=== PATIENT | male | born 1980 | race Caucasian/White ===

== ENCOUNTER 2016-08-24 14:57 | Emergency (ER) | payer OTHER ==
[~2016-08-24 14:57] MED LIST: NOHOMEMEDS
[2016-08-25] MEDS ORDERED: ZOFRAN4 MG PO (21:17)
[2016-08-25] MEDS ORDERED: LIBRIUM25 MG PO (21:17)
== END 2016-08-24 15:48 | disposition left against medical advice (07) ==
LOC: EME 14:57
DX: F10.10 Alcohol abuse, uncomplicated (principal); Z53.21 Procedure and treatment not carried out due to patient leaving prior to being seen by health care provider
CPT/HCPCS: 93005; 99281; 99284

== ENCOUNTER 2016-08-25 00:59 | Emergency (ER) | payer OTHER ==
[~2016-08-25] VITALS: Ht 182.9 cm; Wt 73.5 kg
[2016-08-25 01:42] LABS: HEMATOCRIT 51.2 % (38.0-50.0); MCH 31.9 PG (29.0-34.0); MCHC 34.4 G/DL (30.0-36.0); MCV 92.8 FL (86-99); MEAN PLAT.VOLUME 10.2 uM^3 (9.0-12.4); PLATELET COUNT 137 K/uL (156-360); RBC DIS.WIDTH-CV 12.1 % (11.8-14.6); RBC DIS.WIDTH-SD 41.4 % (39-53); RED BLOOD COUNT 5.52 M/uL (4.00-5.50); WHITE BLOOD COUNT 5.2 K/uL (4.1-10.2)
[2016-08-25 01:48] LABS: CHLORIDE 98 mEq/L (99-109); POTASSIUM 3.1 mEq/L (3.7-5.4); SODIUM 142 mEq/L (136-147)
[2016-08-25 01:51] LABS: GLUCOSE 136 mg/dL (70-99)
[2016-08-25 01:52] LABS: ANION GAP 22 MEQ/L (2-14)
[2016-08-25 01:53] LABS: SERUM ETHYL ALCOHOL 314 mg/dL
[2016-08-25 01:54] LABS: ALKALINE PHOSPHATASE 160 IU/L (3-129); GFR ESTIMATE (CALCULATED) > 59 mL/min/
[2016-08-25 01:55] LABS: UREA NITROGEN (BUN) 8 mg/dL (9-23)
[2016-08-25 09:15] LABS: AMPHETAMINE NEGATIVE (500 ng/mL); BENZODIAZEPINES PRESUMPTIVE POSITIVE (150 ng/mL); COCAINE NEGATIVE (150 ng/mL); METHAMPHETAMINE NEGATIVE (500 ng/mL); OPIATES (MORPHINE) NEGATIVE (100 ng/mL); PHENCYCLIDINE NEGATIVE (25 ng/mL); THC CANNABINOIDS PRESUMPTIVE POSITIVE (50 ng/mL)
[2016-08-25 09:16] LABS: BARBITURATES NEGATIVE (200 ng/mL); INTERNAL CONTROLS VALID? YES; METHADONE NEGATIVE (200 ng/mL); OXYCODONE NEGATIVE (100 ng/mL); PROPOXYPHENE NEGATIVE (300 ng/mL); TRICYCLIC ANTIDEPRESSANTS NEGATIVE (300 ng/mL)
[2016-08-25 09:17] LABS: ADD MEDTOX COMMENT Y
[2016-08-25 09:51] LABS: BENZODIAZEPINES QUANT VALUE 0 NG/ML; BENZODIAZEPINES, URINE SCREEN Negative (200 ng/mL)
[2016-08-25 10:13] VITALS: BP 135/95
[2016-08-25] MEDS ORDERED: LIBRIUM25 MG PO (21:17)
[2016-08-25] MEDS ORDERED: ZOFRAN4 MG PO (21:17)
== END 2016-08-25 10:40 | disposition home or self-care (01) ==
LOC: EME 00:59
PROVIDERS: Emergency Medicine
DX: F10.229 Alcohol dependence with intoxication, unspecified (principal); Y90.8 Blood alcohol level of 240 mg/100 ml or more; E86.0 Dehydration; F17.200 Nicotine dependence, unspecified, uncomplicated
CPT/HCPCS: 80053; 84999; 85027; 99281; 99284; G0480; J2060; J2405; J3411; J3480; J7030; J7050

== ENCOUNTER 2016-08-25 18:03 | Emergency (ER) | payer OTHER ==
[~2016-08-25] VITALS: Ht 182.9 cm; Wt 162.0 kg
[2016-08-25] MEDS ORDERED: LIBRIUM25 MG PO (21:17)
[2016-08-25] MEDS ORDERED: ZOFRAN4 MG PO (21:17)
[2016-08-25 21:55] VITALS: BP 129/80
== END 2016-08-25 21:57 | disposition home or self-care (01) ==
LOC: EME 18:03
DX: F10.239 Alcohol dependence with withdrawal, unspecified (principal); F17.200 Nicotine dependence, unspecified, uncomplicated; I10 Essential (primary) hypertension
CPT/HCPCS: 99281; 99284; J2060

== ENCOUNTER 2017-06-11 12:08 | Emergency (ER) | payer OTHER ==
[~2017-06-11] VITALS: Ht 185.4 cm; Wt 86.3 kg
[~2017-06-11 12:08] MED LIST changes: +LIBRIUM25 MG PO; +ZOFRAN4 MG PO
[2017-06-11 12:26] LABS: APPEARANCE SL.HAZY ((CLEAR)); BILIRUBIN NEGATIVE; BLOOD LARGE; COLOR YELLOW ((YELLOW)); GLUCOSE (STRIP) NEGATIVE; KETONES NEGATIVE; LEUKOCYTES NEGATIVE; NITRITE NEGATIVE; PROTEIN (STRIP) 30; SPECIFIC GRAVITY 1.026 (1.000-1.030); UROBILINOGEN 0.2 MG/DL (0.2-1.0)
[2017-06-11 12:29] LABS: HEMATOCRIT 43.8 % (38.0-50.0); HEMOGLOBIN 15.8 G/DL (12.5-16.6); MCH 30.7 PG (29.0-34.0); MCHC 36.1 G/DL (30.0-36.0); MCV 85.2 FL (86-99); RBC DIS.WIDTH-CV 11.9 % (11.8-14.6); RBC DIS.WIDTH-SD 37.2 % (39-53); RED BLOOD COUNT 5.14 M/uL (4.00-5.50); WHITE BLOOD COUNT 8.9 K/uL (4.1-10.2)
[2017-06-11 12:37] LABS: BACTERIA RARE /HPF; EPITHELIAL CELLS NONE SEEN /HPF; MUCUS 1+ /LPF; RED BLOOD CELLS 0-5 /HPF (0-5); UCUL ADDED? NO; WHITE BLOOD CELLS 0-5 /HPF (0-5)
[2017-06-11 12:39] LABS: CHLORIDE 104 mEq/L (99-109); POTASSIUM 3.7 mEq/L (3.7-5.4); SODIUM 141 mEq/L (136-147)
[2017-06-11 12:41] LABS: GLUCOSE 105 mg/dL (70-99)
[2017-06-11 12:44] LABS: GFR ESTIMATE (CALCULATED) > 59 mL/min/ (58.99-99999)
[2017-06-11 12:45] LABS: UREA NITROGEN (BUN) 12 mg/dL (9-23)
[2017-06-11 13:11] LABS: PLAT.SUFFICIENCY ADEQUATE; PLATELET CLUMPS PRESENT - PLATELET COUNT APPEARS ADQ.; PLATELET COUNT UNABLE TO REPORT K/uL (156-360)
[2017-06-11 14:22] VITALS: BP 98/59
== END 2017-06-11 14:23 | disposition home or self-care (01) ==
LOC: EME 12:08
DX: N23 Unspecified renal colic (principal); Z87.442 Personal history of urinary calculi; I10 Essential (primary) hypertension; F17.200 Nicotine dependence, unspecified, uncomplicated
CPT/HCPCS: 74176; 80048; 81003; 85027; 99281; 99284